=== PATIENT | male | born 1995 | race American Indian/Alaskan Native ===

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

== ENCOUNTER 2020-02-07 14:02 | Emergency (ER) | payer SELFPAY ==
[2020-02-07 14:10] VITALS: BP 128/71
[2020-02-07] MEDS ORDERED: oxyCODONE /ACETAMINOPHEN 5-325MG TAB PO ONE (16:02)
[2020-02-07] MEDS ORDERED: IBUPROFEN 600 MG TAB PO ONE (16:02)
[2020-02-07] MEDS ORDERED: BALANCED SALT IRRIG (BSS) OPHTH SOLN 15 ML OU ONE (16:02)
[2020-02-07] MEDS ORDERED: TETRACAINE 0.5% OPHTH SOLN 4ML OU ONE (16:02)
[2020-02-07] MEDS ORDERED: FLUORESCEIN 1 MG STRIP OP ONE (16:36)
--- NOTE | 2020-02-07 16:36 | Emergency Department Report ---
Eye Injury/Foreign Body - [facility] Eye Location: Right Eye Symptoms: Eye Pain: Yes, Eye Redness: Yes, Recalls Injury: Yes Other History: 24-year-old -Luxembourger, male presents to the emergency room complaining of left eye pain redness and irritation. Patient states while he was at work a plastic piece hit his left eye. Patient states since then he has been having these complaints. Patient denies any blurred vision just having photosensitivity. Patient report his pains a 9 out of 10. ED Review of Systems ROS: Stated complaint: LFT EYE INJURY Other details as noted in HPI ED Past Medical Hx - Past Medical History Previous Medical History?: Yes Hx Asthma: Yes - Social History Smoking Status: Former Smoker Substance Use Type: Non Opiate Pain, Other - Medications Home Medications: Home Medications Medication Instructions Recorded Confirmed Last Taken Type Acetaminophen/Codeine [Tylenol #3] 1 tab PO Q6H PRN #7 tab 09/03/16 Unknown Rx Ibuprofen [Motrin] 600 mg PO Q8H PRN #15 tablet 09/03/16 Unknown Rx Ibuprofen [Motrin 800 MG tab] 800 mg PO Q8HR PRN #30 tablet 02/07/20 Unknown Rx Ofloxacin 0.3% [Floxin 0.3% Otic] 1 - 2 drops OS QID 10 Days #1 02/07/20 Unknown Rx bottle Eye Injury Exam - Exam General: Vital signs noted. No distress. Alert and acting appropriately. - Visual Acuity Left Vision Acuity Degree: 20/20 Eye Exam: Left Injection, Left EOMI (Right medial), Left Eye Foreign Body, Left Fluorescein Uptake, Left Photophobia, Neither Purulent Discharge, Neither Corneal Edema ED Course Vital Signs 02/07/20 14:07 Temperature 98.6 F Pulse Rate 61 Respiratory 20 Rate Blood Pressure 128/71 O2 Sat by Pulse 100 Oximetry ED Medical Decision Making - Medical Decision Making 24-year-old -Luxembourger, male presents to the emergency room complaining of left eye pain redness and irritation. Patient states while he was at work a plastic piece hit his left eye. Patient states since then he has been having these complaints. Patient denies any blurred vision just having photosensitivity. Patient report his pains a 9 out of 10. Fluorescein exam done shows the patient has a corneal abrasion no Jorge sign. Patient will be placed on eye antibiotics and pain medication and was told specifically to follow-up with an group therapist on Sunday as this injury is serious and can cause loss of vision. Critical care attestation.: If time is entered above; I have spent that time in minutes in the direct care of this critically ill patient, excluding procedure time. ED Disposition Clinical Impression: Abrasion of left cornea, Blunt injury, left eye Disposition: TO HOME OR SELFCARE Is pt being admited?: No Does the pt Need Aspirin: No Condition: Stable Instructions: Corneal Abrasion (ED) Additional Instructions: Please use medication as prescribed take pain medication as needed. It is very very important for you to follow-up with an group therapist for further evalu ation to prevent any further damage or blindness to your left eye. I have listed several ophthalmologists below. Prescriptions: Ofloxacin 0.3% [Floxin 0.3% Otic] 1 - 2 drops OS QID 10 Days #1 bottle Ibuprofen [Motrin 800 MG tab] 800 mg PO Q8HR PRN #30 tablet PRN Reason: Pain , Severe (7-10) Referrals: PRIMARY CAREMD [Primary Care Provider] - 3-5 Days [facility] [Provider Group] - 3-5 Days [facility] [Provider Group] - 3-5 Days HONEY BEAVER MD [Staff Physician] - 3-5 Days
[2020-02-07] MEDS ORDERED: TETRACAINE 0.5% OPHTH SOLN 4ML ONE (16:38)
== END 2020-02-07 17:43 | disposition home or self-care (01) ==
LOC: ED 14:02
DX: S05.02XA Injury of conjunctiva and corneal abrasion without foreign body, left eye, initial encounter (principal); S05.8X2A Other injuries of left eye and orbit, initial encounter; J45.909 Unspecified asthma, uncomplicated; Z87.891 Personal history of nicotine dependence; Z79.899 Other long term (current) drug therapy; W22.8XXA Striking against or struck by other objects, initial encounter; Y93.89 Activity, other specified; Y92.89 Other specified places as the place of occurrence of the external cause; Y99.0 Civilian activity done for income or pay
CPT/HCPCS: 99283